=== PATIENT | male | born 1995 | race Caucasian/White ===

== ENCOUNTER 2020-06-30 12:17 | Emergency (ER) | payer OTHER | END 2020-06-30 16:08 | disposition home or self-care (01) | LOC: JVIRT 12:17 | DX: Z20.828 Contact with and (suspected) exposure to other viral communicable diseases (principal) | CPT/HCPCS: C9803; G2012-GT; Q3014-GT; U0003 ==

== ENCOUNTER 2020-07-16 10:24 | Emergency (ER) | payer OTHER | END 2020-07-16 11:29 | disposition home or self-care (01) | LOC: JVIRT 10:24 | DX: Z20.822 Contact with and (suspected) exposure to COVID-19 (principal) | CPT/HCPCS: C9803; G2012-GT; U0003 ==

== ENCOUNTER 2024-01-18 04:58 | Day surgery (SDC) | payer BC ==
[2024-01-16 11:11] VITALS: BMI 30.5
[2024-01-18] MEDS ORDERED: LIDOCAINE 1%/EPI 1:100000 (20 ML MULTI DOSE VIAL) ONE (08:58)
[2024-01-18] MEDS ORDERED: COCAINE HCL 4% TOPICAL SOLUTION 4 ML BOTTLE TP ONE (08:59)
[2024-01-18] MEDS ORDERED: BACITRACIN ZINC 15 GM TUBE TOPICAL OINTMENT ONE ×2 (09:08→10:28)
[2024-01-18] MEDS ORDERED: MIDAZOLAM HCL 2 MG/2 ML SINGLE DOSE VIAL ONE (09:20)
[2024-01-18] MEDS ORDERED: DEXAMETHASONE SOD PHOSPHATE 4 MG/1 ML VIAL ONE ×2 (09:22→09:34)
[2024-01-18] MEDS ORDERED: ceFAZolin SODIUM 1 GM VIAL ONE (09:22)
[2024-01-18] MEDS ORDERED: ONDANSETRON 4 MG/2 ML VIAL ONE (09:22)
[2024-01-18] MEDS ORDERED: LIDOCAINE HCL/PF 2% SDV 5ML VIAL ONE (09:22)
[2024-01-18] MEDS ORDERED: PROPOFOL 40 ML ONE (09:25)
[2024-01-18] MEDS ORDERED: ROCURONIUM BROMIDE 50 MG/5 ML SYRINGE ONE ×2 (09:26→09:33)
[2024-01-18] MEDS: ceFAZolin SODIUM 1 GM VIAL IVPB ONE (09:37)
[2024-01-18] MEDS ORDERED: HYDROmorphone HCl 2 MG/ML VIAL ONE (09:38)
[2024-01-18] MEDS: LIDOCAINE 1%/EPI 1:100000 (50 ML MULTI DOSE VIAL) INF ONE ×2 (09:38)
[2024-01-18] MEDS: COCAINE HCL 4% TOPICAL SOLUTION 4 ML BOTTLE TP ONE (09:40)
[2024-01-18] MEDS ORDERED: ACETAMINOPHEN INJECTION 100 ML IVPB ONE (10:52)
[2024-01-18] MEDS ORDERED: ePHEDrine SULFATE 50 MG/1 ML AMPULE ONE (11:03)
[2024-01-18] MEDS ORDERED: SUGAMMADEX SODIUM 200 MG/2 ML VIAL ONE (11:09)
[2024-01-18] MEDS: BACITRACIN ZINC 15 GM TUBE TOPICAL OINTMENT TP ONE (11:10)
[2024-01-18] MEDS ORDERED: oxyCODONE HCL 5 MG TABLET PO PRN (11:31)
[2024-01-18] MEDS ORDERED: ACETAMINOPHEN 325 MG TABLET (FP) PO PRN (11:31)
[2024-01-18] MEDS ORDERED: ONDANSETRON 4 MG/2 ML VIAL IVPUSH PRN (11:42)
[2024-01-18] MEDS ORDERED: LACTATED RINGERS SOLUTION 1,000 ML IV SCH (11:45)
[2024-01-18 12:58] VITALS: BP 149/63; PULSE 96; RESP 16; TEMP 97.6
== END 2024-01-18 13:29 | disposition home or self-care (01) ==
LOC: JASU-SURG 04:58
PROVIDERS: ATTEND Otolaryngology
PROC: 099Q8ZZ Drainage of Right Maxillary Sinus, Via Natural or Artificial Opening Endoscopic (ICD-10-PCS; 2024-01-18)
PROC: 09BV8ZZ Excision of Left Ethmoid Sinus, Via Natural or Artificial Opening Endoscopic (ICD-10-PCS; 2024-01-18)
PROC: 09BU8ZZ Excision of Right Ethmoid Sinus, Via Natural or Artificial Opening Endoscopic (ICD-10-PCS; 2024-01-18)
PROC: 09BM8ZZ Excision of Nasal Septum, Via Natural or Artificial Opening Endoscopic (ICD-10-PCS; 2024-01-18)
PROC: 099R8ZZ Drainage of Left Maxillary Sinus, Via Natural or Artificial Opening Endoscopic (ICD-10-PCS; principal; 2024-01-18 09:00)
DX: J34.2 Deviated nasal septum (principal); J32.0 Chronic maxillary sinusitis; J34.3 Hypertrophy of nasal turbinates; J35.2 Hypertrophy of adenoids
CPT/HCPCS: 88304-TC; 88311-TC; 94760; J0131